=== PATIENT | male | born 1970 | race American Indian/Alaskan Native ===

== ENCOUNTER 2020-11-27 05:24 | Emergency (ER) | payer OTHER ==
--- NOTE | 2020-11-27 06:29 | XRay Report ---
CHEST 2 VIEWS INDICATION / CLINICAL INFORMATION: Dyspnea. COMPARISON: None available. FINDINGS: SUPPORT DEVICES: None. HEART / MEDIASTINUM: No significant abnormality. LUNGS / PLEURA: Moderate bilateral parenchymal disease characteristic for pneumonia No pneumothorax. ADDITIONAL FINDINGS: No significant additional findings. IMPRESSION: 1. Bilateral pneumonia Signer Name: Juancarlos Oconnell MD Signed: 11/27/2020 6:24 AM Workstation Name: [id number]
[2020-11-27 07:26] LABS: Basophils % (Auto) 0.4 % (0.0-1.8); Eosinophils # (Auto) 0.1 K/mm3 (0.0-0.4); Eosinophils % (Auto) 1.3 % (0.0-4.3); Hematocrit 45.1 % (35.5-45.6); Hemoglobin 14.5 gm/dl (11.8-15.2); Lymphocytes # (Auto) 0.8 K/mm3 (1.2-5.4); Lymphocytes % (Auto) 10.7 % (13.4-35.0); Mean Corpuscular HGB Conc 32 % (32-34); Mean Corpuscular Volume 86 fl (84-94); Monocytes # (Auto) 0.8 K/mm3 (0.0-0.8); Monocytes % (Auto) 10.7 % (0.0-7.3); Platelet Count 154 K/mm3 (140-440); Red Blood Count 5.24 M/mm3 (3.65-5.03); Red Cell Distribution Width 15.1 % (13.2-15.2)
[2020-11-27 07:40] LABS: Calcium 8.9 mg/dL (8.4-10.2)
--- NOTE | 2020-11-28 10:01 | Electrocardiograph Report ---
[facility] Test Date: 2020-11-27 Test Time: 05:42:18 Pat Name: KORIN APARICIO Department: Room: Gender: M Operations Technician: SHENG : 1970 Requested By: ED DOC Order Number: [id number] Reading MD: Jonas Blair Measurements Intervals Plain Rate: 86 P: 48 [place]: 182 QRS: -9 QRSD: 101 T: 108 QT: 408 QTc: 489 Interpretive Statements Sinus rhythm LAE, consider biatrial enlargement LVH with secondary repolarization abnormality No previous ECG available for comparison Electronically Signed On 11-28-2020 10:01:32 EDT by Jonas Blair
== END 2020-11-27 07:20 | disposition left against medical advice (07) ==
LOC: ED 05:24
DX: R06.81 Apnea, not elsewhere classified (principal); Z53.21 Procedure and treatment not carried out due to patient leaving prior to being seen by health care provider
CPT/HCPCS: 36415; 71046; 80048; 84484; 85025; 93005